=== PATIENT | male | born 1970 | race Caucasian/White ===

== ENCOUNTER 2016-06-29 12:04 | Emergency (ER) | payer OTHER ==
[~2016-06-29] VITALS: Ht 177.8 cm; Wt 87.3 kg
[~2016-06-29 12:04] MED LIST: AMBIEN 10MG10 MG PO; B COMPLEX #11 TAB PO; FISH OIL1000 MG PO; INDOCIN50 MG PO; KLONOPIN 0.5MG0.5 MG PO; KLOR-CON 1010 MEQ; MULTI VITAMINS1 TAB PO; WELLBUTRIN XL150 MG PO
[2016-06-29 12:06] VITALS: BP 124/87; TEMP 97.6
[2016-06-29] MEDS ORDERED: NORCO 325 MG-51 TAB PO (12:10)
[2016-06-29 12:59] LABS: BASO # 0.1 (0.0-0.2); BASO % 0.7 % (0.0-2.0); EOS # 0.3 (0.0-0.7); EOS % 3.4 % (0-4.0); GRAN # 4.8 (1.4-6.5); GRAN % 65.7 % (42.2-75.2); HEMATOCRIT 37.5 % (42.0-52.0); HEMOGLOBIN 12.7 g/dl (13.5-18.0); LYMPH # 1.5 (1.2-3.4); LYMPH % 20.8 % (20.0-51.0); MEAN CELL VOLUME 95 fl (80.0-100.0); MEAN CORPUSCULAR HEMOGLOBIN 32 pg (27.0-31.0); MEAN CORPUSCULAR HGB CONC 34 g/dl (33.0-37.0); MEAN PLATELET VOLUME 9.3 fl (7.4-10.4); MONO # 0.7 (0.1-0.6); MONO % 9.1 % (1.7-9.3); PLATELET COUNT 313 K/mm3 (130-400); RED BLOOD COUNT 3.95 M/mm3 (4.20-5.60); REDCELL DISTRIBUTION WIDTH-CV 10.7 % (11.5-14.5); WHITE BLOOD COUNT 7.3 K/mm3 (4.8-10.8)
[2016-06-29 13:12] LABS: ADJUSTED CALCIUM 9.5 mg/dL (8.4-10.2); ALBUMIN 4.4 gm/dL (3.5-5.0); C-REACTIVE PROTEIN 3.1 mg/dL (0.0-0.9); CALCIUM 9.8 mg/dL (8.4-10.2); CREATININE, serum 1.08 mg/dL (0.66-1.25); POTASSIUM 4.2 mmol/L (3.4-5.0); TOTAL PROTEIN 8.7 gm/dL (6.4-8.2)
[2016-06-29 13:16] LABS: URIC ACID 7.9 mg/dL (3.5-8.5)
[2016-06-29 13:20] LABS: ERYTHROCYTE SEDIMENTATION RATE 89 mm/hr (0-15)
[2016-06-29] MEDS ORDERED: ZOFRAN ODT4 MG PO (14:13)
[2016-06-29] MEDS ORDERED: ROXICODONE 55 MG/TAB PO (14:44)
[2016-06-29] MEDS ORDERED: INDOCIN50 MG PO (14:44)
[2016-06-29 14:56] VITALS: PULSE 90
== END 2016-06-29 15:01 | disposition home or self-care (01) ==
LOC: COL.ER 12:04
PROVIDERS: Nurse Practitioner
DX: M10.9 Gout, unspecified (principal)
CPT/HCPCS: J1170; J2550